=== PATIENT | female | born 1985 | race Caucasian/White ===

== ENCOUNTER 2017-07-27 14:12 | Emergency (ER) | payer OTHER, SELFPAY ==
[2017-07-27 14:13] VITALS: BP 150/87; PULSE 92; RESP 20; TEMP 36.8; O2SAT 98; BMI 59.0
[2017-07-27 15:41] VITALS: O2SAT 100
--- NOTE | 2017-07-27 15:48 | EKG12_ITS ---
Test Reason : SOB Blood Pressure : / mmHG Vent. Rate : 082 BPM Atrial Rate : 082 BPM P-R Int : 180 ms QRS Dur : 084 ms QT Int : 380 ms P-R-T Axes : 015 016 006 degrees QTc Int : 443 ms Normal sinus rhythm Normal ECG Confirmed by CHANELL MELENDEZ, EBONI ([id number]), web content editor KENA FRIEDMAN ([id number]) on 08/02/2017 3:08:56 PM Referred By: JACQUES Confirmed By:EBONI LUA MD
--- NOTE | 2017-07-27 15:50 | ED.VISSUMM ---
- ER Visit Summary Date of Service: 07/27/17 Chief Complaint: Cough History of Present Illness: The patient is a 31 F presents to the emergency department with cough. Patient symptoms began about 3 weeks ago. States it started as like a normal upper respiratory infection. States that she started to get better, but over the past 3 days, she has had chest burning, coughing, and wheezing with exertion. She denies any fevers or chills. She has had no productive sputum. She denies any pleuritic pain. She states it just feels like it rehman when she breathes. She denies orthopnea. She has no leg edema. She denies any recent travel. She is no history of pulmonary embolus. She states she has never really had symptoms like this before. She does not smoke and has no underlying history of lung disease. Physical Examination: Vital signs reviewed General: Well-nourished, well-developed Head: Normocephalic, atraumatic Eyes: Pupils equal and reactive, extraocular muscles intact Neck, supple, no lymphadenopathy Heart: Regular rate and rhythm Respiratory: No distress, scant wheeze with prolonged expiration Abdomen: Soft, nontender, nondistended, no peritoneal signs Back: Nontender Extremities: Nontender, no edema, no cords Skin: Normal color no rash Neuro: Alert and oriented, no focal or lateralizing deficits Test Results: [] Emergency Department Course and Treatment: She did have mildly prolonged expiration with a scant wheeze. I did obtain an EKG which was sinus rhythm without acute ischemic change. There was no evidence of right ventricular strain. The patient is PE RC negative. I do not feel these symptoms represent a pulmonary embolus. I did obtain a chest x-ray which was unremarkable. With breathing treatments her aeration had improved. I am going to treat the patient with a prednisone burst and an inhaler. I do feel that she is safe for outpatient therapy. She will be discharged home. Treatment Plan: [] Disposition: Charge Impression: 1. Bronchospasm This note was generated with [employer] dictation software. It may contain incorrect words, spelling, and punctuation that were not noted in review of the chart prior to signing ED Disposition - Plan for ED Patient: Chief Complaint: Shortness of Breath Instructions: ED Upper Resp Infec No Abx Tx Prescriptions: Albuterol Inhaler [Ventolin Hfa] 1 - 2 puff INHALATION Q4H PRN PRN #1 inhaler PRN Reason: Wheezing Prednisone 10 mg PO UD #33 tab Referrals: Marybel Arango, DIRECTOR OF [employer]ANCE [employer] [Primary Care Provider] -
[2017-07-27 15:54] VITALS: PULSE 97; RESP 20
[2017-07-27] MEDS: Ipratropium/Albuterol Sulfate 3 ML AMPUL.NEB INHALATION (15:54)
--- NOTE | 2017-07-27 15:59 | NURSING ---
NO OLD EKGS
[2017-07-27] MEDS: predniSONE 20 MG Tablet 60 MG PO (16:04)
--- NOTE | 2017-07-27 16:20 | RAD_ITS ---
STUDY: X-RAY CHEST REASON FOR EXAM: Female, 31 years old. Shortness of breath and cough x3 weeks TECHNIQUE: Frontal and lateral views of the chest. COMPARISON: August 29, 2015 FINDINGS: The lungs are clear and expanded. There is no demonstrated pleural abnormality. Normal size heart. Normal mediastinum and leland. Normal visualized pulmonary arteries. Normal visualized aortic arch and descending thoracic aorta. Normal visualized thoracic spine. Normal visualized ribs, clavicles, and shoulders. There is no demonstrated abnormality of the visualized soft tissue structures of the upper abdomen. RAD/Chest PA and Lateral IMPRESSION: Normal x-ray examination of the chest. Electronically Signed: William Castro MD at 17:12 EDT , Service support ,
[2017-07-27 17:25] VITALS: BP 147/63; PULSE 87; RESP 16; TEMP 37.2
== END 2017-07-27 17:28 | disposition home or self-care (01) ==
PROVIDERS: Emergency Provider Emergency Medicine; Family Provider Nurse Practitioner; PCP Nurse Practitioner
DX: J98.01 Acute bronchospasm (principal); R06.00 Dyspnea, unspecified
CPT/HCPCS: 71046; 93005; 94640; 99283

== ENCOUNTER 2018-01-02 15:45 | Emergency (ER) | payer OTHER, SELFPAY ==
[2018-01-02] VITALS (8 sets, daily range): BP systolic 125–212; BP diastolic 85–130; PULSE 82–106; RESP 14–24; TEMP 36.2; O2SAT 96–99; BMI 54.0
--- NOTE | 2018-01-02 15:55 | ED.VISSUMM ---
- ER Visit Summary Date of Service: 01/02/18 Chief Complaint: Chest pain History of Present Illness: The patient is a 32 F who presents with chest pain that began approximately 12 hours prior to arrival. Patient states the pain is aching and tightness across her entire chest. Patient states the pain woke her up out of her sleep this morning. Patient states nothing seems to make it better or worse. Patient states she did have an episode of lightheadedness today while at work. Patient denies any nausea or vomiting. Patient denies any shortness of breath. Patient denies any diaphoresis. Patient denies any palpitations or reflux. Patient denies any cough or fever. Patient denies any cardiac risk factors. Patient denies any PE risk factors. Physical Examination: Vital signs are stable except for an elevated blood pressure of 212/117 and a mild tachycardia of 106 and a mild tachypnea of 24. Patient is in no acute distress. Patient is afebrile. Oral mucosa is pink and moist. Neck is supple. Trachea is midline. There is no JVD noted. Heart was regular rate and rhythm. Lungs are clear and equal bilaterally. There is good respiratory effort noted. Abdomen is soft. Bowel sounds are normal. There is no rebound or guarding noted. Cranial nerves II through XII are intact. There are no focal motor or sensory deficits noted. The remaining physical exam is within normal limits. Test Results: EKG showed normal sinus rhythm with a rate of 100. There are no acute ST or T wave changes noted. Portable chest x-ray was obtained and was normal. CBC, basic metabolic profile, and troponin were obtained were all within normal limits. Emergency Department Course and Treatment: Patient has a LORENE risk score of 1. Patient was advised that she has low risk for coronary artery disease. Patient was instructed to follow-up with her primary care physician in 7-10 days. Patient understood and was agreeable with the plan. All questions were answered. Disposition: Discharged home Impression: Chest pain of uncertain etiology This note was generated with [employer] dictation software. It may contain incorrect words, spelling, and punctuation that were not noted in review of the chart prior to signing ED Disposition - Plan for ED Patient: Disposition: Home or Assisted Living Chief Complaint: Chest Pain Diagnosis: Chest pain of uncertain etiology Instructions: ED Chest Pain Atypical Unkn Cause Referrals: Marybel Arango NP-C [Primary Care Provider] -
--- NOTE | 2018-01-02 16:02 | RAD_ITS ---
STUDY: X-RAY CHEST REASON FOR EXAM: Female, 32 years old. Chest pain TECHNIQUE: Single AP portable view of the chest. COMPARISON: Prior study of 07/27/2017 FINDINGS: The lungs are clear and expanded. There is no demonstrated pleural abnormality. Normal size heart. Normal mediastinum and leland. Normal visualized pulmonary arteries. Normal visualized aortic arch and descending thoracic aorta. Normal visualized thoracic spine. Normal visualized ribs, clavicles, and shoulders. There is no demonstrated abnormality of the visualized soft tissue structures of the upper abdomen. RAD/Chest 1 View (Portable) IMPRESSION: Normal x-ray examination of the chest. Electronically Signed: Jay Solorio MD at 16:21 EDT , Service support ,
--- NOTE | 2018-01-02 16:02 | EKG12_ITS ---
Test Reason : CP Blood Pressure : / mmHG Vent. Rate : 100 BPM Atrial Rate : 100 BPM P-R Int : 162 ms QRS Dur : 080 ms QT Int : 350 ms P-R-T Axes : 045 035 018 degrees QTc Int : 451 ms Normal sinus rhythm Normal ECG Confirmed by THALIA MCCLELLAN MD ([id number]), market editor KENA FRIEDMAN ([id number]) on 01/04/2018 9:28:23 AM Referred By: Confirmed By:THALIA MCCLELLAN MD
[2018-01-02] MEDS: Aspirin 81 MG TAB.CHEW 324 MG PO (16:15)
[2018-01-02 16:55] LABS: Absolute Lymphocyte Count 1.89 X10^3/ul (0.83-4.51); Absolute Neutrophil Count 3.5 X10^3/uL (2.0-7.7); Basophil# 0.02 X10^3/uL; Basophil% 0.3 % (0-1); Eosinophil# 0.11 X10^3/uL; Eosinophils% 1.8 % (0-5); Hematocrit 39.4 % (37-47); Hemoglobin 12.9 g/dl (12.0-15.0); Lymphocyte # 1.89 X10^3/ul (4.0); Lymphocyte % 30.9 % (19-41); Mean Corp Hgb Conc 32.7 g/gl (32-36); Mean Corpuscular Hgb 27.3 pg (27.0-32.0); Mean Corpuscular Volume 83.3 fL (81-99); Monocyte# 0.55 X10^3/uL; Neutrophil # 3.53 X10^3/uL (2.7-7.7); Neutrophil % 57.7 % (47-70); POSITIVE COUNT NO; POSITIVE DIFFERENTIAL NO; POSITIVE MORPHOLOGY NO; Platelet Count 313 K/mm3 (150-450); RBC Distribution Width CV 14.3 % (11.6-14.6); Red Blood Count 4.73 M/mm3 (4.2-5.4); White Blood Count 6.1 K/mm3 (4.4-11.0)
[2018-01-02 17:14] LABS: Anion Gap 6 (5-15); BUN 12 mg/dL (7-18); BUN/Creat Ratio 17.1 RATIO (10-20); Calcium,Total 9.4 mg/dL (8.5-10.1); Chloride 104 mmol/L (98-107); EST Glomerular Filtration Rate 102 mL/min (>60); Est Glom Filt Rate - Afr Amer 123 mL/min (>60); Estimated Creatinine Clearance 93.68 ml/min; Glucose 82 mg/dL (74-106); Sodium Level 138 mmol/L (136-145)
== END 2018-01-02 18:45 | disposition home or self-care (01) ==
PROVIDERS: Emergency Provider Emergency Medicine; Family Provider Nurse Practitioner; PCP Nurse Practitioner
DX: R07.9 Chest pain, unspecified (principal)
CPT/HCPCS: 71045; 80048; 84484; 85025; 93005; 99284

== ENCOUNTER → 2019-10-17 | Outpatient (CLI) | payer OTHER, SELFPAY ==
[2019-08-31 17:27] VITALS: BMI 61.1
== END | disposition home or self-care (01) ==
LOC: MTDU 17:50
PROVIDERS: PCP Nurse Practitioner
DX: Z11.59 Encounter for screening for other viral diseases (principal)
CPT/HCPCS: 87635; G2023; U0003

== ENCOUNTER 2021-06-09 22:42 | Outpatient (CLI) | payer OTHER, SELFPAY ==
[2021-06-09 22:57] LABS: Absolute Lymphocyte Count 2.07 X10^3/uL (0.83-4.51); Absolute Neutrophil Count 3.1 X10^3/uL (2.0-7.7); Basophil# 0.04 X10^3/uL; Basophil% 0.7 % (0-1); Eosinophil# 0.17 X10^3/uL; Eosinophils% 2.9 % (0-5); Hemoglobin 13.4 g/dL (12.0-15.0); Lymphocyte # 2.07 X10^3/ul (0.83-4.51); Lymphocyte % 35.2 % (19-41); Mean Corp Hgb Conc 32.7 g/dL (32-36); Mean Corpuscular Hgb 27.8 pg (27.0-32.0); Mean Corpuscular Volume 85.1 fL (81-99); Mean Platelet Vol. 9.4 fl (6.2-12.0); Monocyte# 0.51 X10^3/uL; Monocyte% 8.7 % (0-10); NRBC Flagged by Analyzer 0 % (0-5); Neutrophil # 3.08 X10^3/uL (2.7-7.7); Neutrophil % 52.3 % (47-70); Platelet Count 321 K/mm3 (150-450); RBC Distribution Width CV 14.9 % (11.6-14.6); RBC Distribution Width SD 46.3 fl (35.1-43.9); Red Blood Count 4.82 M/mm3 (4.2-5.4); White Blood Count 5.9 K/mm3 (4.4-11.0)
[2021-06-09 23:05] LABS: D-Dimer Quantitative (DVT/PE) 0.45 FEU/ug/m (0.27-0.49)
[2021-06-09 23:08] LABS: Internal QC Validated? YES +Cl - CLEAR BKGD; Pregnancy, Serum, hCG Quali. NEGATIVE Negative
[2021-06-09 23:16] LABS: BNP,B-Type NATRIURETIC PEPTIDE 4.8 pg/mL (0-100)
[2021-06-09 23:19] LABS: ALB/GLOB Ratio 0.9 RATIO (0.9-2.4); AST(SGOT) 47 U/L (15-37); Alanine Aminotransfer ALT/SGPT 115 U/L (13-56); Albumin, Serum 3.5 g/dL (3.2-5.0); Alkaline Phosphatase 73 U/L (45-117); Anion Gap 4 (5-15); BUN 11 mg/dL (7-18); BUN/Creat Ratio 17.9 RATIO (10-20); CRP, High Sensitivity Cardiac 6.41 mg/L; Calcium,Total 9.2 mg/dL (8.5-10.1); Chloride 105 mmol/L (98-107); Creatinine, Serum 0.62 mg/dL (0.55-1.02); EST Glomerular Filtration Rate 116 mL/min (>60); Est Glom Filt Rate - Afr Amer 140 mL/min (>60); Glucose 116 mg/dL (74-106); Potassium 4.2 mmol/L (3.5-5.1); Protein, Total 7.5 g/dL (6.4-8.2); Sodium Level 140 mmol/L (136-145); Thyroid Stim Hormone (TSH) 2.16 uIU/mL (0.358-3.74)
== END 2021-06-09 23:59 | disposition home or self-care (01) ==
PROVIDERS: PCP Nurse Practitioner; Visit Provider Nurse Practitioner
DX: N91.0 Primary amenorrhea (principal); R60.0 Localized edema; M79.661 Pain in right lower leg; M79.662 Pain in left lower leg
CPT/HCPCS: 80053; 83880; 84443; 84703; 85025; 85379; 86141

== ENCOUNTER → 2021-12-16 | Outpatient (CLI) | payer OTHER, SELFPAY ==
[2021-12-16 21:54] LABS: ALB/GLOB Ratio 0.9 RATIO (0.9-2.4); AST(SGOT) 22 U/L (15-37); Alanine Aminotransfer ALT/SGPT 54 U/L (13-56); Albumin, Serum 3.8 g/dL (3.2-5.0); Alkaline Phosphatase 75 U/L (45-117); Anion Gap 5 (5-15); BUN 15 mg/dL (7-18); CRP 7.94 mg/L (0.0-3.0); Calcium,Total 9.7 mg/dL (8.5-10.1); Chloride 106 mmol/L (98-107); Creatinine, Serum 0.68 mg/dL (0.55-1.02); EST Glomerular Filtration Rate 102 mL/min (>60); Est Glom Filt Rate - Afr Amer 124 mL/min (>60); Globulin 4.1 g/dL (2.2-4.2); Glucose 103 mg/dL (74-106); Protein, Total 7.9 g/dL (6.4-8.2); Sodium Level 139 mmol/L (136-145)
== END | disposition home or self-care (01) ==
PROVIDERS: PCP Nurse Practitioner; Visit Provider Nurse Practitioner
DX: K76.0 Fatty (change of) liver, not elsewhere classified (principal)
CPT/HCPCS: 80053; 86140